=== PATIENT | female | born 1935 | race Caucasian/White ===

== ENCOUNTER 2023-10-10 09:53 | Emergency (ER) | payer MEDICARE ==
[2023-10-10] MEDS ORDERED: Acetaminophen 500 MG TAB ONE (10:20)
[2023-10-10] MEDS ORDERED: Lidocaine 4% Patch ONE (10:21)
== END 2023-10-10 11:04 | disposition home or self-care (01) ==
LOC: MADERS 09:53
DX: S29.012A Strain of muscle and tendon of back wall of thorax, initial encounter (principal); Z87.891 Personal history of nicotine dependence; W26.8XXA Contact with other sharp object(s), not elsewhere classified, initial encounter

== ENCOUNTER 2024-04-02 07:24 | Emergency (ER) | payer MEDICARE ==
[2024-04-02] MEDS ORDERED: Lidocaine 4% Patch ONE (07:50)
[2024-04-02] MEDS ORDERED: Acetaminophen 500 MG TAB ONE (07:50)
[2024-04-02 08:12] LABS: #Basophils 0.1 thou/uL (0.0-0.2); #Eosinophils 0.1 thou/uL (0.0-0.7); #Lymphocytes 0.5 thou/uL (1.20-3.40); #Monocytes 0.4 thou/uL (0.11-0.59); #Neutrophils 6.2 thou/uL (1.40-6.50); %Basophils 1.4 % (0.0-1.0); %Eosinophils 0.7 % (0.0-10.0); %Lymphocytes 7.3 % (21.0-51.0); %Monocytes 5.5 % (0.0-10.0); %Neutrophils 85.1 % (42.0-75.0); Hematocrit 31.1 % (36.0-47.0); Hemoglobin 10.1 g/dL (12.0-16.0); Mean Corpuscular HGB CONC 32.4 g/dL (32.0-36.0); Mean Corpuscular Hemoglobin 30.8 pg (27.0-31.0); Mean Platelet Volume 6.4 fL (7.4-10.4); Platelet Count 475 10x3/uL (130-400); RBC Distribution Width 13.7 % (11.5-14.5); Red Blood Cell (RBC) Count 3.27 mill/uL (4.20-5.40); White Blood Cell (WBC) Count 7.3 10x3/uL (4.8-10.8)
[2024-04-02] MEDS ORDERED: traMADol HCl 50 MG TAB ONE (08:18)
[2024-04-02 08:29] LABS: ALT (SGPT) 19 U/L (8-55); AST (SGOT) 29 U/L (5-34); Albumin 3.3 g/dL (3.4-4.8); Alkaline Phosphatase 86 U/L (40-110); Anion Gap 14 mmol/L (10-20); BUN (Urea Nitrogen) 22 mg/dL (9.8-20.1); Bilirubin, Total 0.3 mg/dL (0.2-1.2); Calc. Creatinine Clearance 0 mL/min (70-130); Carbon Dioxide 24 mmol/L (23-31); Chloride 105 mmol/L (98-107); Estimated GFR 71; Globulin 3.8 g/dL (2.4-3.5); Glucose 100 mg/dL (83-110); Potassium 4.2 mmol/L (3.5-5.1); Protein, Total 7.1 g/dL (5.8-8.1); Sodium 139 mmol/L (136-145)
[2024-04-02 08:30] LABS: Troponin I Less than 0.010 ng/mL (< 0.028)
[2024-04-02] MEDS ORDERED: Ketorolac Tromethamine 30 MG (1 mL) VIAL ONE (09:03)
[2024-04-02] MEDS ORDERED: Azithromycin 250 MG TAB ONE (09:16)
[2024-04-02] MEDS ORDERED: Amoxicillin/Potassium Clav 875 MG TAB ONE (09:16)
[2024-04-02] MEDS ORDERED: Ondansetron ODT 4 MG TAB ONE (09:40)
== END 2024-04-02 09:40 | disposition home or self-care (01) ==
LOC: MADERS 07:24
DX: J18.9 Pneumonia, unspecified organism (principal); J98.11 Atelectasis; G89.29 Other chronic pain; E03.9 Hypothyroidism, unspecified; J44.9 Chronic obstructive pulmonary disease, unspecified; Z87.891 Personal history of nicotine dependence; Z55.6 Problems related to health literacy
CPT/HCPCS: 36415; 70450; 71250; 72125; 80053; 84484; 85025; 93005; 96372; J1885; Q0162

== ENCOUNTER 2024-04-12 10:24 | Emergency (ER) | payer MEDICARE ==
[~2024-04-12 10:24] MED LIST: Iopamidol 370 76% 100 ML VIAL ONE
[2024-04-12] MEDS ORDERED: HYDROcodone/Acetaminophen 5/325 mg Tablet ONE (11:12)
[2024-04-12] MEDS ORDERED: Ketorolac Tromethamine 30 MG (1 mL) VIAL ONE (11:12)
[2024-04-12 11:31] LABS: Band 2 % (5-11); Hematocrit 32.8 % (36.0-47.0); Hemoglobin 10.5 g/dL (12.0-16.0); MDiff Complete? YES; Manual Diff?? YES; Mean Corpuscular Hemoglobin 30.6 pg (27.0-31.0); Mean Corpuscular Volume 95.8 fl (78.0-98.0); Mean Platelet Volume 7.1 fL (7.4-10.4); Neutrophil 81 % (42-75); Platelet Count 432 10x3/uL (130-400); RBC Distribution Width 14.6 % (11.5-14.5); Red Blood Cell (RBC) Count 3.42 mill/uL (4.20-5.40); White Blood Cell (WBC) Count 6.2 10x3/uL (4.8-10.8)
[2024-04-12 11:32] LABS: Anisocytosis SLIGHT = 6-15 cells (100X) (0-5/hpf); Lymphocytes 13 % (21-51); Monocytes 4 % (0-10); Platelet Adequacy Comment Appears Increased
[2024-04-12 11:39] LABS: ALT (SGPT) 13 U/L (8-55); AST (SGOT) 21 U/L (5-34); Albumin 3.7 g/dL (3.4-4.8); Alkaline Phosphatase 106 U/L (40-110); Anion Gap 13 mmol/L (10-20); BUN (Urea Nitrogen) 29 mg/dL (9.8-20.1); Bilirubin, Total 0.4 mg/dL (0.2-1.2); Calc. Creatinine Clearance 0 mL/min (70-130); Carbon Dioxide 25 mmol/L (23-31); Chloride 106 mmol/L (98-107); Estimated GFR 69; Globulin 3.3 g/dL (2.4-3.5); Glucose 96 mg/dL (83-110); Sodium 140 mmol/L (136-145)
[2024-04-12] MEDS ORDERED: Lidocaine 4% Patch ONE (12:09)
[2024-04-12] MEDS ORDERED: fentaNYL 50 mcg/mL 1 mL Vial ONE ×3 (13:55→20:35)
[2024-04-12] MEDS ORDERED: cefTRIAXone (ROCEPHIN) 1 GM VIAL ONE (14:13)
[2024-04-12] MEDS ORDERED: Sodium Chloride 0.9% 100 ML ONE (14:13)
[2024-04-12] MEDS ORDERED: traMADol HCl 50 MG TAB ONE (20:35)
== END 2024-04-12 20:59 | disposition short-term general hospital (02) ==
LOC: MADERS 10:24
DX: J18.9 Pneumonia, unspecified organism (principal); I10 Essential (primary) hypertension; M54.6 Pain in thoracic spine
CPT/HCPCS: 71275; 80053; 85025; 85379; J0696; J1885; J3010; 36415; 96365; 96372; 96375; 96376; Q9967